=== PATIENT | female | born 1960 | race Caucasian/White ===

== ENCOUNTER 2017-02-19 10:32 | Emergency (ER) | payer BC ==
[2017-02-19 11:38] LABS: BASOPHILS 0.5 %; BASOPHILS ABSOLUTE 0.04 10/3/uL (0.0-0.16); EOSINOPHILS 4.1 %; EOSINOPHILS ABSOLUTE 0.36 10/3/uL (0.0-0.53); HEMATOCRIT 44.1 % (36.0-48.0); HEMOGLOBIN 14.9 g/dL (12.0-16.0); IMMATURE GRANULOCYTES 0.1 %; IMMATURE GRANULOCYTES ABSOLUTE 0.01 10/3/uL (0.0-0.11); LYMPHOCYTES 31.9 %; LYMPHOCYTES ABSOLUTE 2.79 10/3/uL (0.67-4.30); MEAN CORPUS HGB CONC 33.8 g/dL (32.0-36.0); MEAN CORPUSCULAR HEMOGLOB 29.8 pg (26.0-34.0); MEAN PLATELET VOLUME 11.3 fL (9.2-13.0); MONOCYTES 7.4 %; MONOCYTES ABSOLUTE 0.65 10/3/uL (0.21-1.20); NEUTROPHILS ABSOLUTE 4.89 10/3/uL (2.02-8.40); PLATELET COUNT 239 10/3/uL (150-400); RBC DISTRIBUTION WIDTH 12.5 % (12.0-16.0); WHITE BLOOD CELLS 8.7 10/3/uL (4.5-10.5)
[2017-02-19 11:39] LABS: MANUAL DIFF NO %; MEAN CORPUSCULAR VOLUME 88.2 fL (80-100)
[2017-02-19 11:45] LABS: INTERNATIONAL NORMAL RATI 1.1 UNITS (-); PARTIAL THROMBO TIME 26.7 SEC (22.5-37.2); PROTIME (NOT ORD) 13.7 SEC (12.0-14.5)
[2017-02-19 11:54] LABS: BUN (BLOOD UREA NITROGEN) 10 MG/DL (6-23); CALCIUM, SERUM 8.6 MG/DL (8.5-10.4); CHEST PAIN PROFILE TAT 0 Hrs 22 Mins; CHLORIDE, SERUM 100 MMOL/L (96-112); CO2 (CARBON DIOXIDE) 27 MMOL/L (24-34); CREATININE 0.82 MG/DL (0.55-1.02); GFR AFRICAN AMERICAN 93 ML/MIN (>=60); GFR NON AFRICAN AMERICAN 81 ML/MIN (>=60); GLUCOSE, SERUM 213 MG/DL (60-99); POTASSIUM, SERUM 3.8 MMOL/L (3.5-5.3); SODIUM, SERUM 138 MMOL/L (135-148); TROPONIN I <0.02 NG/ML (<0.05)
[2017-02-19 12:46] LABS: D-DIMER QUANTITATIVE 0.39 ug/mLFEU (< 0.50)
[2017-02-19] MEDS ORDERED: AMARYL4 PO (13:06)
[2017-02-19] MEDS ORDERED: AMOXIL500 MG PO (13:07)
[2017-02-19] MEDS ORDERED: DIOVAN40 MG PO (13:07)
[2017-02-19] MEDS ORDERED: LANTUSCART SC (13:08)
[2017-02-19] MEDS ORDERED: PERCOCET 10/3251 TAB PO (13:09)
[2017-02-19] MEDS ORDERED: NEUR300 PO (13:09)
[2017-02-19] MEDS ORDERED: V5 PO (13:10)
[2017-02-19] MEDS ORDERED: ASAB PO (13:10)
[2017-02-19] MEDS ORDERED: ZANTAC 150 PO (13:11)
[2017-02-19] MEDS ORDERED: PROBIOTIC PO (13:11)
== END 2017-02-19 15:35 | disposition home or self-care (01) ==
LOC: ER 10:32
PROVIDERS: Hospitalist
DX: R07.9 Chest pain, unspecified (principal); M51.14 Intervertebral disc disorders with radiculopathy, thoracic region; I10 Essential (primary) hypertension; K21.9 Gastro-esophageal reflux disease without esophagitis; E11.9 Type 2 diabetes mellitus without complications; Z87.01 Personal history of pneumonia (recurrent); Z90.710 Acquired absence of both cervix and uterus; Z88.1 Allergy status to other antibiotic agents; Z88.8 Allergy status to other drugs, medicaments and biological substances; Z79.4 Long term (current) use of insulin; Z79.82 Long term (current) use of aspirin; Z79.899 Other long term (current) drug therapy
CPT/HCPCS: 71020; 80048; 83735; 83880; 84484; 85025; 85379; 85610; 85730; 93005; 99285